=== PATIENT | male | born 1980 | race Caucasian/White ===

== ENCOUNTER 2021-03-09 18:37 | Emergency (ER) | payer SELFPAY ==
[2021-03-09] MEDS ORDERED: BACTRIM DS TAB1 EACH PO (21:02)
[2021-03-09] MEDS ORDERED: KEFLEX250 MG PO (21:02)
== END 2021-03-09 22:24 | disposition home or self-care (01) ==
LOC: FER 18:37
DX: L02.214 Cutaneous abscess of groin (principal); L03.314 Cellulitis of groin; E11.9 Type 2 diabetes mellitus without complications; Z23 Encounter for immunization
CPT/HCPCS: 90471; 90715